=== PATIENT | female | born 1980 | race Caucasian/White ===

== ENCOUNTER 2016-10-11 19:33 | Emergency (ER) | payer MEDICAID ==
[2016-10-11 19:41] VITALS: RESP 16; TEMP 97.7; O2SAT 96
--- NOTE | 2016-10-11 20:21 | EDPHY ---
H & P Time Seen by Provider: 10/11/16 19:52 HPI/ROS: CHIEF COMPLAINT: Left shoulder injury HISTORY OF PRESENT ILLNESS: Patient was skiing with her dog 3 weeks ago and was on telemark skis and lost her balance and landed on her left shoulder. She had immediate pain and then it has been kind of on and off since then. It is worse with trying to lift anything or abduction of her shoulder. She feels a little bit like it is but does not have weakness or numbness in the hand. No abdominal pain no neck pain. REVIEW OF SYSTEMS: Otherwise negative PAST MEDICAL HISTORY: Includes asthma and gestational diabetes General Appearance: Alert and conversant, cooperative. Patient has no proximal clavicular tenderness but a little bit of tenderness to palpation on the left AC. Full range of motion passively including internal and external rotation. She has pain with resisted abduction and pain with resisted internal rotation. No bony tenderness in the shoulder. Normal motor sensory and vascular in the left hand including normal strength in radial median and ulnar nerve distributions. Normal left radial pulse. Skin intact. Nontender over the spleen. Emergency Department course/MDM: X-rays reviewed with the patient personally. I do not think she has dislocation or fracture. She has tenderness at the AC joint and so had minimum has a shoulder separation. I warned her she may have internal derangement such as rotator cuff injury or labrum injury or other. We also discussed possibility of brachial plexus injury but she has normal strength and sensation objectively now. 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 Narcotic pain medication declined. Smoking Status: Never smoked Constitutional: Initial Vital Signs Temperature (C) 36.5 C 10/11/16 19:37 Heart Rate 86 10/11/16 19:37 Respiratory Rate 16 10/11/16 19:37 Blood Pressure 107/66 10/11/16 19:37 O2 Sat (%) 96 10/11/16 19:37 O2 Delivery Mode Room Air Allergies/Adverse Reactions: doxycycline Allergy (Verified 10/11/16 19:37) Penicillins Allergy (Verified 10/11/16 19:37) Home Medications: Medication Instructions Recorded NK [No Known Home Meds] 10/11/16 MDM/Departure - MDM Diagnostics: X-ray left shoulder viewed independently by myself is normal. - Depart Disposition: Home, Routine, Self-Care Clinical Impression: Internal derangement of left shoulder Shoulder separation Qualifiers: Qualifier Code: (S43.005A) Unspecified dislocation of left shoulder joint, initial encounter Condition: Good Instructions: Acromioclavicular Separation (ED) Additional Instructions: It is possible you also have an internal shoulder injury such as a rotator cuff problem or a labrum tear. Please follow up with Orthopedics within the next week. You are given a referral to Dr. Ramirez who was on-call for emergency department patients today. Referrals: Antonio Ramirez MD [Medical Doctor] - As per Instructions
[2016-10-11 20:30] VITALS: BP 110/65; PULSE 68
--- NOTE | 2016-10-11 22:33 | DX ---
Left Shoulder, Three Views History: Trauma, pain. Findings: No acute fracture or dislocation identified. No evidence of fracture or dislocation of th e left humeral head or neck region. The left clavicle and scapula demonstrate no definite fractures. Impressions 1. No definite acute fracture. 2. Recommend additional imaging if symptoms persist, if clinically indicated.
== END 2016-10-11 20:30 | disposition home or self-care (01) ==
DX: S43.005A Unspecified dislocation of left shoulder joint, initial encounter (principal); J45.909 Unspecified asthma, uncomplicated; X58.XXXA Exposure to other specified factors, initial encounter; Y99.8 Other external cause status; Y93.23 Activity, snow (alpine) (downhill) skiing, snowboarding, sledding, tobogganing and snow tubing

== ENCOUNTER 2016-10-13 10:18 | Emergency (ER) | payer MEDICAID ==
--- NOTE | 2016-10-13 12:03 | EDPHY ---
H & P Time Seen by Provider: 10/13/16 10:22 HPI/ROS: CHIEF COMPLAINT: left shoulder pain HISTORY OF PRESENT ILLNESS: 36-year-old female presents emergency department complaining of continued and worsened left shoulder pain x4 weeks. Patient fell onto her left shoulder while skiing with her dogs 4 weeks ago, she was seen in the emergency department 2 days ago and had a negative x-ray. She was given an orthopedist for follow-up. Patient reports she skied with poles 2 days ago which worsened her symptoms. Patient reports a deep ache and burning in her shoulder, she feels like it radiates down her triceps. She denies fevers or chills, no neck pain. Patient has an appointment with the orthopedist this coming Saturday. REVIEW OF SYSTEMS: A comprehensive 10 point review of systems is otherwise negative aside from elements mentioned in the history of present illness. Smoking Status: Never smoked Physical Exam: GEN: Awake, alert, oriented, no acute distress RESP: nl resp effort MSK: Left shoulder with full active forward flexion, decreased abduction. Positive Clay, positive Neer, tenderness to palpation over AC joint, full range of motion of left elbow and wrist, no swelling, no ecchymosis, 2+ radial pulses, sensation intact to light touch SKIN: No break in skin Constitutional: Initial Vital Signs Temperature (C) 37 C 10/13/16 10:20 Heart Rate 69 10/13/16 10:20 Respiratory Rate 22 H 10/13/16 10:20 Blood Pressure 124/76 H 10/13/16 10:20 O2 Sat (%) 99 10/13/16 10:20 O2 Delivery Mode Room Air Allergies/Adverse Reactions: doxycycline Allergy (Verified 10/13/16 10:20) Penicillins Allergy (Verified 10/13/16 10:20) Home Medications: Medication Instructions Recorded NK [No Known Home Meds] 10/11/16 MDM/Departure - Depart Disposition: Home, Routine, Self-Care Clinical Impression: Impingement syndrome of left shoulder Condition: Good Instructions: Rotator Cuff Injury (ED) Additional Instructions: Rest, ice, wear sling, take 600 mg of ibuprofen every 8 hours with food for 5 days. Follow up with orthopedist as scheduled on Saturday. Return to the emergency department for any fevers, worsening pain, new symptoms or concerns. Referrals: Antonio Ramirez MD [Medical Doctor] - As per Instructions (Orthopedist on-call)
[2016-10-13 12:16] VITALS: BP 122/70; PULSE 64; RESP 16; TEMP 98.2; O2SAT 98
== END 2016-10-13 12:15 | disposition home or self-care (01) ==
DX: M75.42 Impingement syndrome of left shoulder (principal)
CPT/HCPCS: A4565

== ENCOUNTER 2017-09-12 10:47 | Emergency (ER) | payer MEDICAID ==
[2017-09-12 10:56] VITALS: PULSE 75; RESP 16; TEMP 98.8; O2SAT 98
--- NOTE | 2017-09-12 12:54 | EDPHY ---
H & P Time Seen by Provider: 09/12/17 12:53 HPI/ROS: Chief complaint. Pelvic pain HPI. 37-year-old female presents emergency department with complaint of 1-2 days of unusual pelvic cramping and pain. Her last menstrual menses began September 08 is now finishing. Last night she had quite severe cramping which is unusual for her. No fever urinary symptoms. Possible motor and unusual vaginal discharge. She also has anal itching worse at night and is concerned about pinworms. She has been working on [employer] in [place]. Patient had a recent cone biopsy at [facility] for abnormal Pap. She has a follow-up appointment with them October 28. She also notes fatigue for quite some time. ROS Constitutional. no fever/chills, no weakness Eyes. no problems with vision ENT. no sore throat, no nasal drainage Cardiovascular. no chest pain Respiratory. no shortness of breath, no cough Abdominal. Low abdominal discomfort. Anal itching at night . no problems urinating MS. no calf pain/swelling, no neck/back pain, no joint pain Skin. no rash Lymph. no swollen glands Neuro. no headache, no dizziness, no difficulty walking or with speech Past Medical/Surgical History: HPV, gestational diabetes, mastoiditis, cone biopsy of cervix Social History: Single, daily smoker, no alcohol Smoking Status: Current some day smoker Physical Exam: General Appearance: Alert pleasant well-developed female mild distress vital signs are stable Eyes: Pupils equal and round no pallor or injection. ENT, Mouth: Mucous membranes are moist. Respiratory: There are no retractions, lungs are clear to auscultation. Cardiovascular: Regular rate and rhythm. Gastrointestinal: Abdomen soft with minimal suprapubic tenderness this bilateral. No masses or organomegaly. Neurological: Awake and alert, sensory and motor exams grossly normal. Skin: Warm and dry, no rashes. Musculoskeletal: Neck is supple nontender. Extremities symmetrical, full range of motion. Psychiatric: Patient is oriented X 3, there is no agitation. Constitutional: Initial Vital Signs Temperature (C) 37.1 C 09/12/17 10:52 Heart Rate 75 09/12/17 10:52 Respiratory Rate 16 09/12/17 10:52 Blood Pressure 136/95 H 09/12/17 10:52 O2 Sat (%) 98 09/12/17 10:52 O2 Delivery Mode Room Air Allergies/Adverse Reactions: doxycycline Allergy (Verified 09/12/17 10:52) Penicillins Allergy (Verified 09/12/17 10:52) Home Medications: Medication Instructions Recorded Albendazole [Albenza 200 MG (*)] 400 mg PO ONCE #2 tab 09/12/17 Miller 09/12/17 metroNIDAZOLE [Flagyl 500 mg (*)] 500 mg PO BID #14 tab 09/12/17 Medical Decision Making - Diagnostics Imaging Results: Imaging Impressions Pelvic/Renal Ultrasound 09/12/17 13:09 Impression: 1. No acute findings in the pelvis 2. Two uterine fibroids. Findings discussed with SHANTE NEFF 09/12/2017 at 14:53. Pelvic ultrasound reviewed by me and discussed with Dr. Rothman is normal other than uterine fibroids Procedures: Pelvic exam is performed with nurse Karmen as a food production supervisor. No external lesions. Slight bloody yellow he mucousy discharge the in the vaginal vault. No obvious discharge or bleeding from the cervix. No lesions on the cervix. Cultures were obtained for Chlamydia, GC and bacterial vaginosis. Inspection of the anus shows no obvious pinworms ED Course/Re-evaluation: On re-evaluation patient is stable. 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 Pelvic exam labs are not back yet. She and I discussed treatment plan including criteria for return importance of follow-up further evaluation. She expresses understanding and agreement. Differential Diagnosis: Clinically the patient has pinworms. Clinically the patient has bacterial vaginos. I have considered gonorrhea as well as chlamydia infections. I considered ovarian cyst as well - Data Points Laboratory Results: Laboratory Results 09/12/17 11:00 09/12/17 11:00 09/12/17 09/12/17 09/12/17 14:25 11:00 11:00 WBC RBC Hgb Hct MCV MCH MCHC RDW Plt Count MPV Neut % (Auto) Lymph % (Auto) [place] % (Auto) Eos % (Auto) Baso % (Auto) Nucleat RBC Rel Count Absolute Neuts (auto) Absolute Lymphs (auto) Absolute Monos (auto) Absolute Eos (auto) Absolute Basos (auto) Absolute Nucleated RBC Immature Gran % Immature Gran # Sodium Potassium Chloride Carbon Dioxide Anion Gap BUN Creatinine Estimated GFR Glucose Calcium Beta HCG, Qual Urine Color YELLOW Urine Appearance HAZY Urine pH 6.0 (5.0-7.5) Ur Specific [place] 1.016 (1.002-1.030) Urine Protein NEGATIVE (NEGATIVE) Urine Ketones NEGATIVE (NEGATIVE) Urine Blood 2+ H (NEGATIVE) Urine Nitrate NEGATIVE (NEGATIVE) Urine Bilirubin NEGATIVE (NEGATIVE) Urine Urobilinogen NEGATIVE EU EU (0.2-1.0) Ur Leukocyte Esterase NEGATIVE (NEGATIVE) Urine RBC Pending Urine WBC Pending Ur Epithelial Cells Pending Urine Glucose NEGATIVE (NEGATIVE) Kylie species DNA Pending C.trachomatis RNA (TMA) Pending Gardnerella DNA Probe Pending N.gonorrhoeae RNA (TMA) Pending Trichomonas DNA Probe Pending 09/12/17 09/12/17 09/12/17 11:00 11:00 11:00 WBC 7.03 10^3/uL 10^3/uL (3.80-9.50) RBC 4.93 10^6/uL 10^6/uL (4.18-5.33) Hgb 14.7 g/dL g/dL (12.6-16.3) Hct 44.1 % % (38.0-47.0) MCV 89.5 fL fL (81.5-99.8) MCH 29.8 pg pg (27.9-34.1) MCHC 33.3 g/dL g/dL (32.4-36.7) RDW 13.2 % % (11.5-15.2) Plt Count 335 10^3/uL 10^3/uL (150-400) MPV 10.8 fL fL (8.7-11.7) Neut % (Auto) 67.8 % % (39.3-74.2) Lymph % (Auto) 22.5 % % (15.0-45.0) [place] % (Auto) 6.3 % % (4.5-13.0) Eos % (Auto) 2.4 % % (0.6-7.6) Baso % (Auto) 0.7 % % (0.3-1.7) Nucleat RBC Rel Count 0.0 % % (0.0-0.2) Absolute Neuts (auto) 4.77 10^3/uL 10^3/uL (1.70-6.50) Absolute Lymphs (auto) 1.58 10^3/uL 10^3/uL (1.00-3.00) Absolute Monos (auto) 0.44 10^3/uL 10^3/uL (0.30-0.80) Absolute Eos (auto) 0.17 10^3/uL 10^3/uL (0.03-0.40) Absolute Basos (auto) 0.05 10^3/uL 10^3/uL (0.02-0.10) Absolute Nucleated RBC 0.00 10^3/uL 10^3/uL (0-0.01) Immature Gran % 0.3 % % (0.0-1.1) Immature Gran # 0.02 10^3/uL 10^3/uL (0.00-0.10) Sodium 141 mEq/L mEq/L (134-144) Potassium 4.4 mEq/L mEq/L (3.5-5.2) Chloride 103 mEq/L mEq/L (97-110) Carbon Dioxide 25 mEq/l mEq/l (22-31) Anion Gap 13 mEq/L mEq/L (8-16) BUN 17 mg/dL mg/dL (7-23) Creatinine 0.8 mg/dL mg/dL (0.6-1.0) Estimated GFR > 60 Glucose 79 mg/dL mg/dL (70-100) Calcium 10.2 mg/dL mg/dL (8.5-10.4) Beta HCG, Qual NEGATIVE Urine Color Urine Appearance Urine pH Ur Specific [place] Urine Protein Urine Ketones Urine Blood Urine Nitrate Urine Bilirubin Urine Urobilinogen Ur Leukocyte Esterase Urine RBC Urine WBC Ur Epithelial Cells Urine Glucose Kylie species DNA C.trachomatis RNA (TMA) Gardnerella DNA Probe N.gonorrhoeae RNA (TMA) Trichomonas DNA Probe Departure - Departure Disposition: Home, Routine, Self-Care Clinical Impression: Pin worms Abdominal pain Qualifiers: Abdominal location: lower abdomen, unspecified Qualified Code(s): R10.30 - Lower abdominal pain, unspecified Condition: Good Instructions: Acute Abdominal Pain (ED), Bacterial Vaginosis (ED) Additional Instructions: Flagyl twice daily for 1 week for bacterial vaginosis and back and vaginal discharge. Pain were medication 1 dose now and then repeat in 2 weeks. Return for worsening symptoms. Recheck in 2-3 days if not improving Referrals: NONE *PRIMARY CARE P,. [Primary Care Provider] - As per Instructions Jennifer Gu MD [Medical Doctor] - 5-7 days, call for appt. Prescriptions: Albendazole [Albenza 200 MG (*)] 400 mg PO ONCE #2 tab metroNIDAZOLE [Flagyl 500 mg (*)] 500 mg PO BID #14 tab
[2017-09-12 15:13] LABS: % IMMATURE GRANULYOCYTES 0.3 % (0.0-1.1); ABSOLUTE IMMATURE GRANULOCYTES 0.02 10^3/uL (0.00-0.10); ADD DIFF? NO; ADD MORPH? NO; ADD SCAN? NO; ATYPICAL LYMPHOCYTE FLAG 10 (0-99); FRAGMENT RBC FLAG 0 (0-99); HEMATOCRIT 44.1 % (38.0-47.0); HEMOGLOBIN 14.7 g/dL (12.6-16.3); LEFT SHIFT FLG 0 (0-99); LIPEMIA HEMOLYSIS FLAG 80 (0-99); MEAN CELL HEMOGLOBIN 29.8 pg (27.9-34.1); MEAN CELL HEMOGLOBIN CONCENTR. 33.3 g/dL (32.4-36.7); MEAN CELL VOLUME 89.5 fL (81.5-99.8); MEAN PLATELET VOLUME 10.8 fL (8.7-11.7); PLATELET CLUMPS FLAG 0 (0-99); PLATELET COUNT 335 10^3/uL (150-400); RED BLOOD CELL COUNT 4.93 10^6/uL (4.18-5.33); RED CELL DISTRIBUTION WIDTH 13.2 % (11.5-15.2)
[2017-09-12 15:14] LABS: COLOR YELLOW; LEUKOCYTE ESTERASE,URINE NEGATIVE (NEGATIVE); NITRITE,URINE NEGATIVE (NEGATIVE)
[2017-09-12 15:20] LABS: ANION GAP 13 mEq/L (8-16); CALCIUM 10.2 mg/dL (8.5-10.4); CARBON DIOXIDE 25 mEq/l (22-31); CHLORIDE 103 mEq/L (97-110); CREATININE 0.8 mg/dL (0.6-1.0); GLOMERULAR FILTRATION RATE > 60; GLUCOSE 79 mg/dL (70-100); POTASSIUM 4.4 mEq/L (3.5-5.2); SODIUM 141 mEq/L (134-144)
[2017-09-12 15:36] LABS: MUCUS TRACE /lpf (NONE-1+)
[2017-09-12 16:08] VITALS: BP 132/83
[2017-09-13 14:00] LABS: CHLAMYDIA AMPLIFICATION GENPRB NEGATIVE (NEGATIVE)
== END 2017-09-12 15:52 | disposition home or self-care (01) ==
DX: R10.30 Lower abdominal pain, unspecified (principal); B80 Enterobiasis; F17.200 Nicotine dependence, unspecified, uncomplicated